=== PATIENT | female | born 1980 | race Hispanic/Latino ===

== ENCOUNTER 2019-04-12 17:52 | Emergency (ER) | payer OTHER ==
[2019-04-12] MEDS ORDERED: SODIUM CHLORIDE 0.9% 1000 ML 1,000 ML IV ONE (18:20)
--- NOTE | 2019-04-12 18:22 | Emergency Department Report ---
ED Syncope HPI - General Stated Complaint: SYNCOPE Time Seen by Provider: 04/12/19 18:17 Source: patient, EMS Exam Limitations: no limitations - History of Present Illness Initial Comments: Patient is a 38-year-old female up since emergency room with complaints of syncopal episode. Patient states her loss of consciousness was brief. [place] the [place] 1[place] to another. Patient states she has not been eating very well today or drinking enough water. Patient states s he was on her way to [place] to go to alcohol rehabilitation. Patient denies pain at this time. Patient denies hitting her head. Patient states she was able to easily results the floor before losing consciousness. Patient states he was witnessed. Patient states witnesses said she did not hit her head. Patient denies headache. Patient denies dizziness. Patient states prior to passing out she became lightheaded. Patient states she is now back to normal. Patient denies headache. Patient denies chest pain or shortness of breath. Patient denies fevers. Patient denies abdominal pain. Timing/Prior Episodes: single episode today Precipitating Factors: Positive: lightheadedness Context: standing Loss of Consciousness: brief (seconds) Current Symptoms: back to normal - Related Data Allergies/Adverse Reactions: Allergies No Known Allergies Allergy (Unverified 04/12/19 18:41) ED Review of Systems ROS: Stated complaint: SYNCOPE Other details as noted in HPI Constitutional: denies: chills, fever Eyes: denies: eye pain, eye discharge, vision change ENT: denies: ear pain, throat pain Respiratory: denies: cough, shortness of breath, wheezing Cardiovascular: denies: chest pain, palpitations Endocrine: no symptoms reported Gastrointestinal: denies: abdominal pain, nausea, diarrhea Genitourinary: denies: urgency, dysuria, discharge Musculoskeletal: denies: back pain, joint swelling, arthralgia Skin: denies: rash, lesions Neurological: denies: headache, weakness, paresthesias Psychiatric: denies: anxiety, depression Hematological/Lymphatic: denies: easy bleeding, easy bruising ED Past Medical Hx - Past Medical History Previous Medical History?: No Additional medical history: Alcohol abuse. - Surgical History Past Surgical History?: No - Family History Family history: no significant - Social History Smoking Status: Never Smoker Substance Use Type: None ED Physical Exam - General Limitations: No Limitations General appearance: alert, in no apparent distress - Head Head exam: Present: atraumatic, normocephalic - Eye Eye exam: Present: normal appearance, PERRL Pupils: Present: normal accommodation - ENT ENT exam: Present: mucous membranes moist - Neck Neck exam: Present: normal inspection - Respiratory Respiratory exam: Present: normal lung sounds bilaterally. Absent: respiratory distress, wheezes, rales - Cardiovascular Cardiovascular Exam: Present: regular rate, normal rhythm. Absent: systolic murmur, diastolic murmur, rubs, gallop - GI/Abdominal GI/Abdominal exam: Present: soft, normal bowel sounds. Absent: distended, tenderness, guarding - Rectal Rectal exam: Present: deferred - Extremities Exam Extremities exam: Present: normal inspection, full ROM. Absent: tenderness - Back Exam Back exam: Present: normal inspection - Neurological Exam Neurological exam: Present: alert, oriented X3 - Psychiatric Psychiatric exam: Present: normal affect, normal mood - Skin Skin exam: Present: warm, dry, intact, normal color. Absent: rash ED Course Vital Signs 04/12/19 04/12/19 04/12/19 18:26 18:30 18:42 Temperature 98.1 F Pulse Rate 86 89 93 H Respiratory 19 15 14 Rate Blood Pressure 151/104 144/100 O2 Sat by Pulse 97 Oximetry 04/12/19 04/12/19 04/12/19 19:06 19:30 20:00 Temperature Pulse Rate 88 89 92 H Respiratory 13 16 13 Rate Blood Pressure 133/96 133/96 138/97 O2 Sat by Pulse 99 98 97 Oximetry 04/12/19 04/12/19 04/12/19 20:30 20:46 21:00 Temperature Pulse Rate 91 H 75 Respiratory 13 16 16 Rate Blood Pressure 146/105 136/98 O2 Sat by Pulse 98 100 Oximetry 04/12/19 04/12/19 04/12/19 21:30 22:00 22:30 Temperature Pulse Rate 80 85 78 Respiratory 13 16 14 Rate Blood Pressure 148/93 158/99 158/99 O2 Sat by Pulse 99 99 97 Oximetry 04/12/19 04/12/19 23:00 23:30 Temperature Pulse Rate 79 77 Respiratory 16 13 Rate Blood Pressure 128/77 131/81 O2 Sat by Pulse 97 97 Oximetry - Reevaluation(s) Reevaluation #1: Patient states she feels better. I discussed all results with patient. Patient ambulatory without difficulty in the ER. Patient stable for discharge. Patient discharged home. Patient agrees with plan of care. Patient given discharge instructions. Patient voiced understanding of discharge instructions 04/12/19 23:40 - EJ/Peripheral Line Neck L Time Out Performed: Yes Indications: nurses unable to establis Skin Cleansed in Sterile Fashion: Yes Size: 20 Dressing Placed: Tegaderm, tape Patient Tolerated Procedure: well ED Medical Decision Making - Lab Data Result diagrams: 04/12/19 18:40 04/12/19 18:40 - EKG Data -: EKG Interpreted by Me EKG shows normal: sinus rhythm, axis, intervals, QRS complexes, ST-T waves Rate: normal - Radiology Data Radiology results: report reviewed CT head/brain wo con INDICATION / CLINICAL INFORMATION: Syncope. TECHNIQUE: Axial CT imaging of the brain was obtained without contrast. Coronal and sagittal reformatted imaging obtained and reviewed. All CT scans at this location are performed using CT dose reduction for ALARA by means of automated exposure control. COMPARISON: None available. FINDINGS: No intracranial hemorrhage, mass, or midline shift is present. No extra-axial fluid collection or suggestion of acute territorial infarct. Ventricular system and basilar cisterns are unremarkable. Visualized paranasal sinuses and mastoid air cells are well aerated and clear. No calvarial fracture noted. IMPRESSION: 1. Negative noncontrasted head CT scan. - Medical Decision Making Patient is a 38-year-old female up since emergency room with a syncopal episode. Patient's significant be secondary to dehydration and inadequate by mouth intake. Patient given fluids. Patient's symptoms resolved. Patient stable in the ER. Patient ambulatory in the ER without difficulty. Patient's labs unremarkable. Patient's head CT negative. Patient discharged home. - Differential Diagnosis dehydration. Syncope. Critical care attestation.: If time is entered above; I have spent that time in minutes in the direct care of this critically ill patient, excluding procedure time. ED Disposition Clinical Impression: Dehydration Syncope Qualifiers: Syncope type: unspecified Qualified Code(s): R55 - Syncope and collapse Disposition: DC-01 TO HOME OR SELFCARE Is pt being admited?: No Does the pt Need Aspirin: No Condition: Stable Instructions: Syncope (ED) Additional Instructions: Patient to follow up with primary care in 2-3 days. Patient to rest her patient increase water. Patient to eat regularly. Patient to return to the ER if condition worsens. Referrals: PRIMARY CARE, [Primary Care Provider] - 3-5 Days Forms: Work/School Release Form(ED) Time of Disposition: 23:22
--- NOTE | 2019-04-12 19:36 | Cat Scan Report ---
CT head/brain wo con INDICATION / CLINICAL INFORMATION: Syncope. TECHNIQUE: Axial CT imaging of the brain was obtained without contrast. Coronal and sagittal reformatted imaging obtained and reviewed. All CT scans at this location are performed using CT dose reduction for ALAR A by means of automated exposure control. COMPARISON: None available. FINDINGS: No intracranial hemorrhage, mass, or midline shift is present. No extra-axial fluid collection or sug gestion of acute territorial infarct. Ventricular system and basilar cisterns are unremarkable. Visualized paranasal sinuses and mastoid air cells are well aerated and clear. No calvarial fracture noted. IMPRESSION: 1. Negative noncontrasted head CT scan. Signer Name: Treva Ritter MD Signed: 04/12/2019 7:32 PM Workstation Name: [id number]
[2019-04-12 21:12] LABS: Basophils % (Auto) 0.4 % (0.0-1.8); Eosinophils % (Auto) 0.3 % (0.0-4.3); Hematocrit 45.7 % (30.3-42.9); Hemoglobin 15.7 gm/dl (10.1-14.3); Lymphocytes # (Auto) 1.1 K/mm3 (1.2-5.4); Lymphocytes % (Auto) 15.2 % (13.4-35.0); Mean Corpuscular HGB Conc 34 % (30-34); Mean Corpuscular Volume 103 fl (79-97); Monocytes # (Auto) 0.9 K/mm3 (0.0-0.8); Monocytes % (Auto) 12.4 % (0.0-7.3); Platelet Count 174 K/mm3 (140-440); Red Blood Count 4.42 M/mm3 (3.65-5.03); Red Cell Distribution Width 13.5 % (13.2-15.2)
[2019-04-12 21:36] LABS: Alanine Aminotransferase 75 units/L (7-56); Albumin 4.4 g/dL (3.9-5); BUN/Creatinine Ratio 40; Blood Urea Nitrogen 16 mg/dL (7-17); Calcium 9.5 mg/dL (8.4-10.2); Hemolysis Index 17
[2019-04-12 23:52] VITALS: BP 131/81
== END 2019-04-13 00:13 | disposition home or self-care (01) ==
LOC: ED 17:52
DX: E86.0 Dehydration (principal); R55 Syncope and collapse; F10.10 Alcohol abuse, uncomplicated
CPT/HCPCS: 36415; 36556; 70450; 80053; 85025; 93005; 93010; 96360; 99285; J7030